=== PATIENT | female | born 1995 | race Caucasian/White ===

== ENCOUNTER 2016-10-16 07:29 | Inpatient (IN) | payer OTHER ==
[~2016-10-16] VITALS: Ht 157.5 cm; Wt 68.9 kg
[2016-10-16] VITALS (10 sets, daily range): BP systolic 112–143; RESP 18–20; TEMP 98–98.9; Ht 157.5 cm; Wt 68.9 kg
[2016-10-16] MEDS ORDERED: ONDANSETRON 4 MG VIAL IV PRN (07:55)
[2016-10-16] MEDS ORDERED: METOCLOPRAMIDE 10 MG/2 ML VIAL IV PUSH PRN (07:55)
[2016-10-16] MEDS ORDERED: ALU/MAG/SIM 30 ML UDC PO PRN (07:55)
[2016-10-16] MEDS ORDERED: PROMETHAZINE 25 MG/ML VIAL IV PRN (07:55)
[2016-10-16] MEDS ORDERED: TERBUTALINE 1 MG/ML VIAL SUBQ PRN (07:55)
[2016-10-16] MEDS ORDERED: FAMOTIDINE 20 MG INJ IV PRN (07:55)
[2016-10-16] MEDS ORDERED: LIDOCAINE 1% 30 ML PF INFILTRATE ONE (07:55)
[2016-10-16] MEDS ORDERED: ACETAMINOPHEN 325 MG TAB PO PRN (07:55)
[2016-10-16] MEDS ORDERED: FAMOTIDINE 20 MG TAB PO PRN (07:55)
[2016-10-16] MEDS ORDERED: LIDOCAINE 1% BUFFERED 1 ML SYR INTRADERM PRN (07:55)
[2016-10-16] MEDS ORDERED: CEFAZOLIN (LD/OB) 100 ML IV PRN (07:55)
[2016-10-16] MEDS ORDERED: OXYTOCIN 15 UNITS/250 ML NS 250 ML IV SCH ×2 (07:55→15:35)
[2016-10-16] MEDS ORDERED: LIDOCAINE 1% 30 ML PF ONE (08:08)
[2016-10-16] MEDS: LACT RINGERS 1,000 ML IV SCH ×2 (08:26→12:10)
[2016-10-16] MEDS ORDERED: BUPIVACAINE 0.5% PF 10ML EPIDURAL ONE (09:53)
[2016-10-16] MEDS ORDERED: ROPIV/FENT 0.2%-2MCG/ML 100 ML EPIDURAL ONE (11:38)
[2016-10-16] MEDS ORDERED: FENTANYL 100 MCG/2 ML AMP ONE (11:39)
[2016-10-16] MEDS ORDERED: LACT RINGERS 500 ML IV ONE (12:45)
[2016-10-16] MEDS ORDERED: ROPIV/FENT 0.2%-2MCG/ML 100 ML EPIDURAL SCH (12:45)
[2016-10-16] MEDS ORDERED: LACT RINGERS 500 ML IV PRN (12:45)
[2016-10-16] MEDS ORDERED: SODIUM CHLORIDE 0.9% 500 ML IV PRN (12:45)
[2016-10-16] MEDS ORDERED: FENTANYL 100 MCG/2 ML AMP EPIDURAL ONE (12:45)
[2016-10-16] MEDS: OXYTOCIN 15 UNITS/250 ML NS 250 ML IV SCH ×2 (15:25→16:20)
[2016-10-16] MEDS ORDERED: SALINE FLUSH 10 ML FLUSH PRN (15:35)
[2016-10-16] MEDS ORDERED: TDaP 0.5 ML VIAL IM.VACC ONE (15:35)
[2016-10-16] MEDS ORDERED: MAG HYDROX 30 ML UDC PO PRN (15:35)
[2016-10-16] MEDS: ASTRINGENT MED PADS 40'S TOPICAL PRN (17:53)
[2016-10-16] MEDS: DERMOPLAST SPRAY TOPICAL PRN (17:53)
[2016-10-16] MEDS: Ibuprofen 600 MG TAB PO SCH (17:53)
[2016-10-16] MEDS ORDERED: **ONLY ANESTEHSIA MAY ORDER OPIATES WHILE ON EPIDURAL XX SCH (20:00)
[2016-10-17] MEDS: Ibuprofen 600 MG TAB PO SCH ×4 (00:09→18:10)
[2016-10-17 02:41] VITALS: BP_SYST 119; RESP 20; TEMP 97.7
[2016-10-17 05:24] VITALS: BP_SYST 124; RESP 16; TEMP 97.7
[2016-10-17 09:06] VITALS: BP_SYST 115; RESP 18; TEMP 98.3
[2016-10-17] MEDS: DOCUSATE SOD 100 MG CAP PO SCH (09:53)
[2016-10-17 13:02] VITALS: BP_SYST 124; RESP 20; TEMP 97.4
[2016-10-17 17:42] VITALS: BP_SYST 118; RESP 16; TEMP 97.4
[2016-10-18] MEDS: Ibuprofen 600 MG TAB PO SCH ×3 (00:26→11:30)
[2016-10-18 06:01] VITALS: BP_SYST 124; RESP 16; TEMP 98
[2016-10-18] MEDS: DOCUSATE SOD 100 MG CAP PO SCH (09:15)
[2016-10-18 10:57] VITALS: BP_SYST 124; RESP 16; TEMP 98
[2016-10-18] MEDS: ASTRINGENT MED PADS 40'S TOPICAL PRN (11:30)
[2016-10-18] MEDS: DERMOPLAST SPRAY TOPICAL PRN (11:30)
== END 2016-10-18 12:51 | disposition home or self-care (01) | DRG 775 ==
LOC: LD 07:29 → OB 18:25
PROVIDERS: ADMIT Obstetrics & Gynecology; ATTEND Obstetrics & Gynecology
PROC: 10E0XZZ Delivery of Products of Conception, External Approach (ICD-10-PCS; principal; 2016-10-16)
DX: O80 Encounter for full-term uncomplicated delivery (principal); Z37.0 Single live birth; Z3A.40 40 weeks gestation of pregnancy
CPT/HCPCS: 85014; 85018; 85025; 86850; 86900; 86901; 96372